=== PATIENT | female | born 1950 | race Caucasian/White ===

== ENCOUNTER 2021-02-10 09:59 | Outpatient (CLI) | payer MEDICARE | END 2021-02-10 10:00 | disposition home or self-care (01) | LOC: CSHMAMMO 09:59 | PROVIDERS: ATTEND Internal Medicine | DX: Z12.31 Encounter for screening mammogram for malignant neoplasm of breast (principal) | CPT/HCPCS: 77063; 77067 ==

== ENCOUNTER 2021-03-12 13:14 | Outpatient (CLI) | payer MEDICARE ==
[2021-03-13 11:58] LABS: SARS-CoV-2 PCR by NAA Not Detected (NotDetected)
== END 2021-03-12 13:15 | disposition home or self-care (01) ==
LOC: CSHLAB 13:14
PROVIDERS: ATTEND Internal Medicine Gastroenterology
DX: Z20.822 Contact with and (suspected) exposure to COVID-19 (principal); K63.5 Polyp of colon
CPT/HCPCS: U0003; U0005

== ENCOUNTER 2024-06-16 14:06 | Outpatient (CLI) | payer MEDICARE | END 2024-06-16 14:07 | disposition home or self-care (01) | LOC: CSHMRI 14:06 | PROVIDERS: ATTEND Nurse Practitioner Family | DX: M47.26 Other spondylosis with radiculopathy, lumbar region (principal); M43.16 Spondylolisthesis, lumbar region; M51.16 Intervertebral disc disorders with radiculopathy, lumbar region; M48.061 Spinal stenosis, lumbar region without neurogenic claudication | CPT/HCPCS: 72100; 72148 ==

== ENCOUNTER 2025-02-20 08:50 | Emergency (ER) | payer MEDICARE ==
[2025-02-20 09:47] LABS: #Basophils 0.07 10x3/uL (0.0-0.2); #Eosinophils 0.24 10x3/uL (0.0-0.5); #Monocytes 0.68 10x3/uL (0.0-1.1); #Neutrophils 4.40 10x3/uL (1.5-8.4); %Basophils 1.0 % (0.0-2.0); %Eosinophils 3.3 % (0.0-6.0); %Lymphocytes 26.5 % (18.0-47.0); %Monocytes 9.2 % (0.0-10.0); %Neutrophils 59.7 % (40.0-75.0); Hematocrit 41.8 % (34.9-44.5); Hemoglobin 13.7 g/dL (12.0-15.5); Mean Corpuscular Hemoglobin 31.1 pg (27.0-33.0); Mean Corpuscular Volume 95.0 fL (81.6-98.3); Platelet Count 289 10x3/uL (150-450); Red Blood Cell (RBC) Count 4.40 10x6/uL (3.90-5.03); White Blood Cell (WBC) Count 7.36 10x3/uL (3.5-10.5)
[2025-02-20 10:02] LABS: ALT (SGPT) 14 U/L (Less than 34); AST (SGOT) 23 U/L (11-34); Albumin 3.9 g/dL (3.1-4.5); Alkaline Phosphatase 51 U/L (40-110); Anion Gap 13 mmol/L (10-20); BUN (Urea Nitrogen) 10 mg/dL (9.8-20.1); Bilirubin, Total 0.6 mg/dL (0.3-1.2); Calc. Creatinine Clearance 0 mL/min (70-130); Calcium 9.7 mg/dL (7.8-10.44); Carbon Dioxide 27 mmol/L (23-31); Chloride 106 mmol/L (98-107); Globulin 2.8 g/dL (2.4-3.5); Glucose 91 mg/dL (83-110); Potassium 4.4 mmol/L (3.5-5.1); Sodium 142 mmol/L (136-145)
[2025-02-20 10:04] LABS: Troponin I Less than 0.010 ng/mL (< 0.028)
== END 2025-02-20 12:44 | disposition home or self-care (01) ==
LOC: CSHERS 08:50
DX: R60.0 Localized edema (principal); E78.5 Hyperlipidemia, unspecified; F17.210 Nicotine dependence, cigarettes, uncomplicated; Z79.899 Other long term (current) drug therapy; Z55.6 Problems related to health literacy
CPT/HCPCS: 80053; 83880; 84484; 85025; 93970

== ENCOUNTER 2025-03-11 09:06 | Outpatient (CLI) | payer MEDICARE | END 2025-03-11 09:07 | disposition home or self-care (01) | LOC: CSHSLEEP 09:06 | PROVIDERS: ATTEND Family Medicine | DX: G47.33 Obstructive sleep apnea (adult) (pediatric) (principal); R53.83 Other fatigue; R06.83 Snoring | CPT/HCPCS: 95810 ==

== ENCOUNTER 2025-03-28 08:58 | Outpatient (CLI) | payer MEDICARE | END 2025-03-28 08:59 | disposition home or self-care (01) | LOC: CSHSLEEP 08:58 | PROVIDERS: ATTEND Family Medicine | DX: G47.33 Obstructive sleep apnea (adult) (pediatric) (principal); R53.83 Other fatigue; R06.83 Snoring | CPT/HCPCS: 95811 ==